=== PATIENT | male | born 1945 | race Caucasian/White ===

== ENCOUNTER → 2020-12-02 08:56 | Outpatient (BNVA) | payer MEDICARE, SELFPAY | PROVIDERS: PCP Nurse Practitioner Family; Visit Provider Nurse Practitioner Family | DX: R59.1 Generalized enlarged lymph nodes (principal); M25.561 Pain in right knee; M17.12 Unilateral primary osteoarthritis, left knee; M85.862 Other specified disorders of bone density and structure, left lower leg; Z12.5 Encounter for screening for malignant neoplasm of prostate; M10.9 Gout, unspecified; R73.9 Hyperglycemia, unspecified; I10 Essential (primary) hypertension; Z71.89 Other specified counseling | CPT/HCPCS: 73562; 80053; 80061; 82607; 83036; 84443; 84550; 85025; G0103 ==

== ENCOUNTER → 2020-12-20 10:45 | Outpatient (BNVA) | payer MEDICARE, SELFPAY | PROVIDERS: PCP Nurse Practitioner Family; Referring Provider Nurse Practitioner Family; Visit Provider Orthopaedic Surgery | DX: M16.12 Unilateral primary osteoarthritis, left hip (principal); M25.552 Pain in left hip; M25.561 Pain in right knee | CPT/HCPCS: 73502 ==

== ENCOUNTER 2021-01-04 06:00 | Outpatient (RCR) | payer MEDICARE, SELFPAY | END 2021-01-06 23:59 | disposition home or self-care (01) | LOC: TPT 06:00 | PROVIDERS: PCP Nurse Practitioner Family; Referring Provider Orthopaedic Surgery; Visit Provider Orthopaedic Surgery | DX: M54.5 Low back pain (principal); M25.552 Pain in left hip | CPT/HCPCS: 97110; 97162 ==

== ENCOUNTER 2021-01-07 06:00 | Outpatient (RCR) | payer MEDICARE, SELFPAY | END 2021-02-06 23:59 | disposition home or self-care (01) | LOC: TPT 06:00 | PROVIDERS: PCP Nurse Practitioner Family; Referring Provider Orthopaedic Surgery; Visit Provider Orthopaedic Surgery | DX: M25.552 Pain in left hip (principal) | CPT/HCPCS: 97110 ==

== ENCOUNTER 2021-02-07 06:00 | Outpatient (RCR) | payer MEDICARE, SELFPAY | END 2021-03-08 23:59 | disposition home or self-care (01) | LOC: TPT 06:00 | PROVIDERS: PCP Nurse Practitioner Family; Referring Provider Orthopaedic Surgery; Visit Provider Orthopaedic Surgery | DX: M54.50 Low back pain, unspecified (principal); M25.559 Pain in unspecified hip | CPT/HCPCS: 97110; 97164 ==

== ENCOUNTER → 2021-03-10 17:08 | Outpatient (BNVA) | payer MEDICARE, SELFPAY | PROVIDERS: PCP Nurse Practitioner Family; Visit Provider Nurse Practitioner Family | DX: E53.8 Deficiency of other specified B group vitamins (principal); I10 Essential (primary) hypertension | CPT/HCPCS: 80053; 82607 ==

== ENCOUNTER → 2021-11-28 08:26 | Outpatient (BNVA) | payer MEDICARE, SELFPAY | PROVIDERS: PCP Nurse Practitioner Family; Visit Provider Nurse Practitioner Family | DX: E53.8 Deficiency of other specified B group vitamins (principal); Z12.5 Encounter for screening for malignant neoplasm of prostate; R73.9 Hyperglycemia, unspecified; E55.9 Vitamin D deficiency, unspecified; I10 Essential (primary) hypertension; E78.5 Hyperlipidemia, unspecified; M10.9 Gout, unspecified | CPT/HCPCS: 80053; 80061; 82306; 82607; 83036; 84550; 85025; G0103 ==

== ENCOUNTER 2022-03-10 11:54 | Emergency (ER) | payer MEDICARE, SELFPAY ==
[2022-03-10 12:09] VITALS: BP 116/73; PULSE 100; RESP 18; TEMP 37.2; O2SAT 95
--- NOTE | 2022-03-10 13:32 | CT_ITS ---
WS: [id number] CT HEAD TECHNIQUE: Noncontrast CT of the head obtained from the skullbase to the vertex. CLINICAL INFORMATION: Difficulty communicating COMPARISON: None. DLP: 1129.[address] scans at [facility] use at least one of these dose optimization techniques: automated e xposure control; mA and/or kV adjustment per patient size (includes targeted exams where dose is matc hed to clinical indication); or iterative reconstruction. FINDINGS: Mild soft tissue edema overlying the RIGHT face and orbit partially visualized. Correlatio n for RIGHT facial and periorbital cellulitis. No evidence of intracranial hemorrhage or mass effect. Ventricular system and basal cisterns are cardoza nt. No extra-axial fluid collections. No evidence of mass or mass effect. Normal nation-white different iation. Vascular calcification. Paranasal sinuses and mastoid air cells are well aerated. .. CT/CT head wo con* [id number] IMPRESSION: 1. No evidence of intracranial hemorrhage or mass effect. 2. Mild soft tissue edema overlying the RIGHT face and orbit partially visuali zed. Correlation for RIGHT facial and periorbital cellulitis. This can be furth er evaluated with contrast-enhanced CT of the orbits if concern for orbital inv olvement 3. No acute intracranial findings.
--- NOTE | 2022-03-10 14:06 | XRR_ITS ---
PROCEDURE INFORMATION: Exam: XR Chest Exam date and time: 03/10/2022 2:13 PM Age: 76 years old Clinical indication: Cough and fever TECHNIQUE: Imaging protocol: Radiologic exam of the chest. Views: 1 view. COMPARISON: No relevant prior studies available. FINDINGS: Lungs: Unremarkable. No consolidation. Pleural spaces: Unremarkable. No pleural effusion. No pneumothorax. Heart/Mediastinum: Unremarkable. No cardiomegaly. Bones/joints: Unremarkable. XR/XR chest 1V portable [id number] IMPRESSION: No acute findings.
--- NOTE | 2022-03-10 14:08 | ED_ITS ---
HPI - Fever General: Chief Complaint: Fever Stated Complaint: Sabrina sent, swelling on face Time Seen by Provider: 03/10/22 13:43 History of Present Illness: Patient is a 76-year-old male who comes to the ED with multiple complaints. He was sent here to the ED by his primary care alejandra osborne to get a head CT scan. Patient was having some slight confusion and trouble speaking, some primary care physician sent patient here for further evaluation. Patient also has had a cough nasal congestion/drainage and fevers for the past 3 days. His cough is productive with a yellow sputum. Today he woke up and he had swelling to the right maxillary face that goes up into the right periorbital region as well. Endorses feeling some pain if palpated but otherwise no pain noted. Denies any vision changes or eye discomfort or pain. No apparent eye pain with any ocular movements. Denies any nausea or vomiting. Associated symptoms: Reports chills and nasal congestion; Deny abdominal pain, flank pain, chest pain, diarrhea, dysuria, headache(s), na usea or vomiting Review of Systems Const: Reports: fever(s) and chills; Denies: fatigue Eyes: Denies: change in vision or eye discomfort ENMT: Reports: throat pain, nasal discharge and nasal congestion; Denies: odynophagia Card: Denies: chest pain, palpitations, edema, swelling of feet/ankles, dyspnea on exertion or orthopnea Resp: Reports: productive cough (Yellow sputum); Denies: dyspnea or non-productive cough GI: Denies: abdominal pain, nausea, vomiting, diarrhea, constipation or hematochezia : Denies: flank pain, difficulty urinating, dysuria or hematuria Musc: Denies: neck pain, back pain or extremity swelling Skin/Breast: Reports: new lesions (Right maxillary facial swelling, erythema and tenderness) Neuro: Denies: headache(s), numbness in extremities or weakness in extremities PFSH ED PFSH: Medical History Anxiety Gout Hyperlipidemia Hypertension Vitamin D deficiency Surgical History Hx of appendectomy Hx of cataract extraction Hx of cholecystectomy (~2009) Hx of hernia repair (~2010) Family History Mother Cancer Melanoma Dementia Father Lung disease COPD Other CAD (coronary artery disease) Hypertension Denies family history of Diabetes Clotting disorder Anesthesia complication Bleeding disorder Stroke Social History Smoking and tobacco status: never smoked Second hand smoke exposure: No Alcohol intake: current Alcohol intake frequency: holidays/special occasions only Alcohol type: wine Caregiver/support person: Yes Lives independently: Yes Household members: spouse Marital status: service: Yes branch: [employer] Current occupational status: employed History of recent travel: Yes Details: moved to area from [place], [place] Out of state: Yes Current gender identity: Male Special andrzej needs: No Physical Exam Const: COMMON NORMALS: patient oriented x3 and alert GENERAL APPEARANCE: cooperative and comfortable HENMT: COMMON NORMALS: normocephalic HEAD & SCALP: normocephalic MOUTH: Normal oral and palatal mucosa present THROAT: posterior oropharynx normal and uvula midline Eye: COMMON NORMALS: Equal, round and reactive pupils present, EOMs intact bilaterally and conjunctivae normal GENERAL EYE: appearance normal, both eyes and all related structures PERIORBITAL: periorbital findings abnormal positive right periorbital swelling CONJUNCTIVA: Yes conjunctivae normal PUPIL: Yes Equal, round and reactive pupils present OTHER: Patient's conjunctivae is normal. EOM normal and no pain in eye with any occular movements. Neck/C-Spine: COMMON NORMALS: supple GENERAL: Yes normal visual inspection Lymph: LYMPHATIC: no lymphadenopathy noted Resp: COMMON NORMALS: normal respiratory effort, No retractions, No use of accessory muscles and clear to auscultation bilaterally AUSCULTATION: clear to auscultation bilaterally Cardio: COMMON NORMALS: regular rate, regular rhythm, S1 normal heart sound present, S2 normal heart sound present, No gallops present (Cardio), No clicks present (Cardio), No murmurs present (Cardio) and Peripheral pulses 2+ throughout RATE: regular rate RHYTHM: regular rhythm HEART SOUNDS: S1 normal heart sound present and S2 normal heart sound present PERIPHERAL PULSES: Peripheral pulses 2+ throughout GI: COMMON NORMALS: Normal to inspection, nondistended, normoactive bowel sounds present, Soft to palpation, non-tender and no masses PALPATION: Yes Soft to palpation : COMMON NORMALS: Yes no CVA tenderness BLADDER/KIDNEY EXAM: Yes no CVA tenderness Back/Pelvis: COMMON NORMALS: no CVA tenderness Extremity: GENERAL: Yes normal exam except as noted Neuro: COMMON NORMALS: patient oriented x3, CN's II-XII intact bilaterally, moves all extremities, no focal motor deficits and no sensory deficits noted SENSORIUM/ORIENTATION: Yes alert SENSORY EXAM: Yes extremities (intact) MOTOR EXAM: 5/5 motor strength present throughout Skin: COMMON NORMALS: no rashes or lesions noted GENERAL SKIN EXAM: no rashes or lesions noted and dry skin Course Vital Signs: Vital signs: Vital Signs Temperature 99.0 F 03/10/22 12:09 Pulse Rate 95 03/10/22 16:13 Respiratory Rate 18 03/10/22 16:13 Blood Pressure 125/68 03/10/22 16:13 Pulse Oximetry 98 03/10/22 16:13 MDM - Fever Medical Decision Making Patient is a 76-year-old male who comes to the ED with multiple complaints. He was sent here to the ED by his primary care physician to get a head CT scan. Ruben hurtado was having some slight confusion and trouble speaking, some primary care physician sent patient here for further evaluation. Patient also has had a cough nasal congestion/drainage and fevers for the past 3 days. His cough is productive with a yellow sputum. Today he woke up and he had swelling to the right maxillary face that goes up into the right periorbital region as well. Endorses feeling some pain if palpated but otherwise no pain noted. Denies any vision changes or eye discomfort or pain. No apparent eye pain with any ocular movements. Denies any nausea or vomiting. Vitals are stable. Patient has cellulitis on right side of face. Some swelling does involve the right pe riorbital region but patient has no pain in right eye and no pain with ocular movements. Neuro exam showed no deficits. White blood cell count 15.8 and creatinine was 1.6. Rapid strep was positive. Upper respiratory viral panel pending. Head CT shows no acute findings. Chest x-ray shows no acute findings. Patient was given half a liter of IV fluids, Rocephin and Solu-Medrol. Patient was diagnosed with cellulitis of face, creatinine elevation, viral URI with cough and strep throat. Patient was discharged home with a prescription for an antibiotic and a steroid. He was given strict return to ED precautions especially given his cellulitis of his face. Follow-up with PCP in the next 3 to 5 days for reevaluation and to have his creatinine levels rechecked. Patient understood and agreed with plan. Lab Data I reviewed the patient's lab results. 03/10/22 14:15 03/10/22 14:[address] 03/10/22 13:32 IMPRESSION: 1. No evidence of intracranial hemorrhage or mass effect. 2. Mild soft tissue edema overlying the RIGHT face and orbit partially visualized. Correlation for RIGHT facial and periorbital cellulitis. This can be further evaluated with contrast-enhanced CT of the orbits if concern for orbital involvement 3. No acute intracranial findings. Chest X-Ray 03/10/22 14:06 IMPRESSION: No acute findings. Laboratory Results WBC 15.8 10^3/uL (4.0-10.0) H 03/10/22 14:15 RBC 5.00 10^6/uL (4.1-5.3) 03/10/22 14:15 Hgb 13.3 g/dL (11.7-16.6) 03/10/22 14:15 Hct 42.7 % (42.0-52.0) 03/10/22 14:15 MCV 85.4 fl (80-94) 03/10/22 14:15 MCH 26.6 pg (28.0-34.0) L 03/10/22 14:15 MCHC 31.1 g/dL (30.0-36.0) 03/10/22 14:15 RDW 16.4 % (12.1-15.1) H 03/10/22 14:15 Plt Count 224 10^3/cmm (130-400) 03/10/22 14:15 MPV 11.0 fL (7.4-10.4) H 03/10/22 14:15 Neut % (Auto) 89.9 % 03/10/22 14:15 Lymph % (Auto) 2.6 % 03/10/22 14:15 [place] % (Auto) 6.9 % 03/10/22 14:15 Eos % (Auto) 0.0 % 03/10/22 14:15 Baso % (Auto) 0.2 % 03/10/22 14:15 Neut # (Auto) 14.19 10^3/uL (1.8-7.7) H 03/10/22 14:15 Lymph # (Auto) 0.4 10^3/uL (0.8-4.8) L 03/10/22 14:15 [place] # (Auto) 1.1 10^3/uL (0.2-0.9) H 03/10/22 14:15 Eos # (Auto) 0.0 10^3/uL (0.0-0.8) 03/10/22 14:15 Baso # (Auto) 0.0 10^3/uL (0.0-0.1) 03/10/22 14:15 Nucleated RBC % (auto) 0 % 03/10/22 14:15 Nucleated RBCs # 0.0 /100WBC 03/10/22 14:15 Sodium 132 mmol/L (136-145) L 03/10/22 14:15 Potassium 4.9 mmol/L (3.5-5.1) 03/10/22 14:15 Chloride 98 mmol/L (98-107) 03/10/22 14:15 Carbon Dioxide 22 mmol/L (22-29) 03/10/22 14:15 Anion Gap 16.9 (5-19) 03/10/22 14:15 BUN 24 mg/dL (8-23) H 03/10/22 14:15 Creatinine 1.6 mg/dL (0.7-1.2) H 03/10/22 14:15 GFR Calculation Not Reportable 03/10/22 14:15 Glucose 122 mg/dL (65-115) H 03/10/22 14:15 Calculated Osmolality 279 mOsm/kg (285-295) L 03/10/22 14:15 Calcium 8.7 mg/dL (8.5-10.5) 03/10/22 14:15 Total Bilirubin 0.4 mg/dL (0.15-1.2) 03/10/22 14:15 AST 66 U/L (0-40) H 03/10/22 14:15 ALT 62 U/L (0-41) H 03/10/22 14:15 Alkaline Phosphatase 121 U/L (40-130) 03/10/22 14:15 Total Protein 7.4 g/dL (6.6-8.7) 03/10/22 14:15 Albumin 3.5 g/dL (3.5-5.2) 03/10/22 14:15 Globulin 3.9 g/dL (1.3-4.6) 03/10/22 14:15 Nasal Influ A H1 2009 PCR Not detected (NOT DETECT) 03/10/22 14:17 Adenovirus (PCR) Not detected (NOT DETECT) 03/10/22 14:17 C. pneumoniae DNA (PCR) Not detected (NOT DETECT) 03/10/22 14:17 Coronavirus 229E (PCR) Not detected (NOT DETECT) 03/10/22 14:17 Human Metapneumovir PCR Not detected (NOT DETECT) 03/10/22 14:17 Influenza A (H1) PCR Not detected (NOT DETECT) 03/10/22 14:17 Influenza A (H3) PCR Not detected (NOT DETECT) 03/10/22 14:17 Influenza Type A (PCR) Not detected (NOT DETECT) 03/10/22 14:17 Influenza Type B (PCR) Not detected (NOT DETECT) 03/10/22 14:17 M. pneumoniae (PCR) Not detected (NOT DETECT) 03/10/22 14:17 Parainfluenza 1 (PCR) Not detected (NOT DETECT) 03/10/22 14:17 Parainfluenza 2 (PCR) Not detected (NOT DETECT) 03/10/22 14:17 Parainfluenza 3 (PCR) Not detected (NOT DETECT) 03/10/22 14:17 Parainfluenza 4 (PCR) Not detected (NOT DETECT) 03/10/22 14:17 RSV Type A (PCR) Not detected (NOT DETECT) 03/10/22 14:17 RSV Type B (PCR) Not detected (NOT DETECT) 03/10/22 14:17 Entero/Rhino (PCR) Not detected (NOT DETECT) 03/10/22 14:17 SARS-CoV-2 (PCR) Not detected (NOT DETECT) 03/10/22 14:17 Group A Strep Rapid Positive (Negative) H 03/10/22 14:20 Discharge Plan Discharge Patient Disposition: Home Clinical Impression: Cellulitis of face, Creatinine elevation, Viral URI with cough, Strep throat Condition: Stable Prescriptions: New cephalexin 500 mg capsule 500 mg PO Q6H 7 Days Qty: 28 0RF prednisone 20 mg tablet 20 mg PO BID 5 Days Qty: 10 0RF No Action Men's 50 Plus Multivitamin 400-20-370 mcg tablet 1 tab PO DAILY omega-3 fatty acids [Fish Oil Concentrate] 1,000 mg capsule 1,000 mg PO DAILY ascorbic acid (vitamin C) 500 mg capsule 500 mg PO DAILY glucosamine-chondroitin 900 mg tablet PO loratadine 10 mg tablet 10 mg PO DAILY Qty: 90 1RF resveratrol-quercetin 100-100 mg tablet 5 tab PO famotidine 20 mg tablet See Rx Instructions .ROUTE .COMPLEX Qty: 90 1RF Dose Instruction: Take 1 tablet by mouth once daily Rx Instructions: Take 1 tablet by mouth once daily tadalafil 5 mg tablet See Rx Instructions .ROUTE .COMPLEX Qty: 90 1RF Dose Instruction: Take 1 tablet by mouth once daily Rx Instructions: Take 1 tablet by mouth once daily allopurinol 300 mg tablet See Rx Instructions .ROUTE .COMPLEX Qty: 45 1RF Dose Instruction: Take 1/2 (one-half) tablet by mouth once daily Rx Instructions: Take 1/2 (one-half) tablet by mouth once daily cholecalciferol (vitamin D3) 1,250 mcg (50,000 unit) capsule See Rx Instructions .ROUTE .COMPLEX Qty: 12 0RF Dose Instruction: Take 1 capsule by mouth once a week Rx Instructions: Take 1 capsule by mouth once a week meloxicam 15 mg tablet See Rx Instructions .ROUTE .COMPLEX Qty: 90 0RF Dose Instruction: Take 1 tablet by mouth once daily Rx Instructions: Take 1 tablet by mouth once daily rosuvastatin 5 mg tablet See Rx Instructions .ROUTE .COMPLEX Qty: 90 0RF Dose Instruction: Take 1 tablet by mouth once daily Rx Instructions: Take 1 tablet by mouth once daily lisinopril 40 mg tablet See Rx Instructions .ROUTE .COMPLEX Qty: 90 0RF Dose Instruction: Take 1 tablet by mouth once daily Rx Instructions: Take 1 tablet by mouth once daily hydrochlorothiazide 25 mg tablet See Rx Instructions .ROUTE .COMPLEX Qty: 90 0RF Dose Instruction: TAKE 1 TABLET BY MOUTH IN THE MORNING Rx Instructions: TAKE 1 TABLET BY MOUTH IN THE MORNING diphenoxylate-atropine 2.5-0.025 mg tablet 1 tab PO DAILY PRN (Reason: diarrhea) Qty: 30 2RF clonazepam 0.5 mg tablet 0.25 mg PO DAILY Qty: 15 0RF Discharge Orders: Discharge ED (Routine); Ordered 03/10/22 Ordered By: Mart Luz Referrals: Cheryl Bennett FNP [Primary Care Provider] - Discharge Diet: Regular Discharge Activity: Increase activity as tolerated Patient Instructions: Cellulitis (ED), Strep Throat (DC), Upper Respiratory Infection (ED) Activity Restrictions/Additional Instructions: Follow-up with medical provider as directed in the next 3 to 4 days for re evaluation and to have your creatinine levels rechecked. Take medications as prescribed. Return to the ER or your medical provider if condition worsens or you start developing any eye pain, vision change or any other right eye complaint.. Please read and understand discharge instructions. Thank you for choosing [facility] for your healthcare needs today. Please realize this is an emergency room and that we are providing you with a medical screening exam and this may not be complete and all inclusive of all the testing and or work up that you may need to determine your ailment or severity of your illness. It is very important that you follow up as instructed or that you return to the Emergency Department should you have concerns or if your condition changes or worsens in any way. Coding Level of Care Code ED Dental Hygienist Mobile Coordinator for Saima Fwdashawn Exam Comprehensive
[2022-03-10 14:38] LABS: Basophils % 0.2 %; Hematocrit 42.7 % (42.0-52.0); Hemoglobin 13.3 g/dL (11.7-16.6); Lymphocytes # 0.4 10^3/uL (0.8-4.8); Lymphocytes % 2.6 %; Mean Corpuscular HGB Conc 31.1 g/dL (30.0-36.0); Mean Corpuscular Hemoglobin 26.6 pg (28.0-34.0); Mean Corpuscular Volume 85.4 fl (80-94); Monocytes # 1.1 10^3/uL (0.2-0.9); Monocytes % 6.9 %; Neutrophils # 14.19 10^3/uL (1.8-7.7); Neutrophils % 89.9 %; Nucleated Red Blood Cells % 0 %; Platelet Count 224 10^3/cmm (130-400); Red Cell Distribution Width 16.4 % (12.1-15.1); White Blood Count 15.8 10^3/uL (4.0-10.0)
[2022-03-10 14:56] LABS: Alanine Aminotransferase 62 U/L (0-41); Albumin Level 3.5 g/dL (3.5-5.2); Alkaline Phosphatase 121 U/L (40-130); Anion Gap 16.9 (5-19); Aspartate Amino Transferase 66 U/L (0-40); Blood Urea Nitrogen 24 mg/dL (8-23); Calcium 8.7 mg/dL (8.5-10.5); Carbon Dioxide 22 mmol/L (22-29); Chloride 98 mmol/L (98-107); Globulin 3.9 g/dL (1.3-4.6); Glucose 122 mg/dL (65-115); Osmolality Calculated 279 mOsm/kg (285-295); Potassium 4.9 mmol/L (3.5-5.1); Sodium 132 mmol/L (136-145); Total Bilirubin 0.4 mg/dL (0.15-1.2); Total Protein 7.4 g/dL (6.6-8.7)
[2022-03-10] MEDS: cefTRIAXone 1,000 MG in sodium chloride 0.9% (plus) 50 ML 100 MG IV (15:08)
[2022-03-10] MEDS: sodium chloride 0.9% 500 ML 999 ML IV (15:22)
[2022-03-10 15:50] LABS: Rapid Strep A Test Positive (Negative)
[2022-03-10 16:13] VITALS: BP 125/68; PULSE 95; RESP 18; O2SAT 98
[2022-03-10 16:19] LABS: Adenovirus Not Detected (NOT DETECT); Chlamydia Pneumoniae Not Detected (NOT DETECT); Coronavirus 229E,HKU1,NL63,OC4 Not Detected (NOT DETECT); Human Metapneumovirus Not Detected (NOT DETECT); Human Rhinovirus/Enterovirus Not Detected (NOT DETECT); Influenza A Not Detected (NOT DETECT); Influenza A H1 Not Detected (NOT DETECT); Influenza A H1-2009 Not Detected (NOT DETECT); Influenza A H3 Not Detected (NOT DETECT); Influenza B Not Detected (NOT DETECT); Mycoplasma Pneumoniae Not Detected (NOT DETECT); Parainfluenza Virus Type 1 Not Detected (NOT DETECT); Parainfluenza Virus Type 2 Not Detected (NOT DETECT); Parainfluenza Virus Type 3 Not Detected (NOT DETECT); Parainfluenza Virus Type 4 Not Detected (NOT DETECT); Respiratory Syncytial Virus A Not Detected (NOT DETECT); Respiratory Syncytial Virus B Not Detected (NOT DETECT); SARS-COV-2 Not Detected (NOT DETECT)
== END 2022-03-10 16:15 | disposition home or self-care (01) ==
PROVIDERS: Emergency Provider Physician Assistant; PCP Nurse Practitioner Family
DX: L03.211 Cellulitis of face (principal); J06.9 Acute upper respiratory infection, unspecified; J02.0 Streptococcal pharyngitis; R79.89 Other specified abnormal findings of blood chemistry; Z20.822 Contact with and (suspected) exposure to COVID-19; E78.5 Hyperlipidemia, unspecified; I10 Essential (primary) hypertension
CPT/HCPCS: 36415; 70450; 71045; 80053; 85025; 87400; 87426; 87486; 87581; 87633; 87880; 96374; 96375; 99285; J0696; J2930; J7040

== ENCOUNTER → 2022-03-14 16:42 | Outpatient (BNVA) | payer MEDICARE, SELFPAY | PROVIDERS: PCP Nurse Practitioner Family; Visit Provider Nurse Practitioner Family | DX: L03.211 Cellulitis of face (principal); E55.9 Vitamin D deficiency, unspecified; R73.9 Hyperglycemia, unspecified; I10 Essential (primary) hypertension; E53.8 Deficiency of other specified B group vitamins; M10.9 Gout, unspecified | CPT/HCPCS: 80053; 80061; 82306; 82607; 83036; 83735; 84443; 84550; 85007; 85025 ==

== ENCOUNTER → 2022-06-22 10:32 | Outpatient (BNVA) | payer MEDICARE, SELFPAY | PROVIDERS: PCP Nurse Practitioner Family; Visit Provider Nurse Practitioner Family | DX: I10 Essential (primary) hypertension (principal); E78.5 Hyperlipidemia, unspecified; R73.9 Hyperglycemia, unspecified; E55.9 Vitamin D deficiency, unspecified | CPT/HCPCS: 80053; 80061; 82306; 83036; 85025 ==

== ENCOUNTER → 2022-12-25 12:24 | Outpatient (BNVA) | payer MEDICARE, SELFPAY | PROVIDERS: PCP Nurse Practitioner Family; Visit Provider Nurse Practitioner Family | DX: K58.0 Irritable bowel syndrome with diarrhea; E55.9 Vitamin D deficiency, unspecified; M10.9 Gout, unspecified; I10 Essential (primary) hypertension; E53.8 Deficiency of other specified B group vitamins; E78.5 Hyperlipidemia, unspecified; N40.0 Benign prostatic hyperplasia without lower urinary tract symptoms; R73.9 Hyperglycemia, unspecified | CPT/HCPCS: 80053; 80061; 82306; 82607; 83036; 84443; 84550; 85025 ==

== ENCOUNTER → 2023-02-08 08:25 | Outpatient (BNVA) | payer MEDICARE, SELFPAY | PROVIDERS: PCP Nurse Practitioner Family; Visit Provider Nurse Practitioner Family | DX: E87.5 Hyperkalemia (principal); R53.83 Other fatigue | CPT/HCPCS: 80048; 84403 ==

== ENCOUNTER → 2023-06-07 13:58 | Outpatient (BNVA) | payer MEDICARE, SELFPAY | PROVIDERS: PCP Nurse Practitioner Family; Visit Provider Family Medicine | DX: R50.9 Fever, unspecified (principal); R05.9 Cough, unspecified | CPT/HCPCS: 87071; 87400; 87426; 87880 ==

== ENCOUNTER → 2023-06-25 15:30 | Outpatient (BNVA) | payer MEDICARE, SELFPAY | PROVIDERS: PCP Nurse Practitioner Family; Visit Provider Nurse Practitioner Family | DX: Z12.5 Encounter for screening for malignant neoplasm of prostate (principal); E53.8 Deficiency of other specified B group vitamins; M10.9 Gout, unspecified; I10 Essential (primary) hypertension; E55.9 Vitamin D deficiency, unspecified; R73.9 Hyperglycemia, unspecified | CPT/HCPCS: 80053; 80061; 82306; 82607; 83036; 84443; 84550; 85025; G0103 ==

== ENCOUNTER → 2023-09-17 08:31 | Outpatient (BNVA) | payer MEDICARE, SELFPAY | PROVIDERS: PCP Nurse Practitioner Family; Visit Provider Nurse Practitioner Family | DX: N40.1 Benign prostatic hyperplasia with lower urinary tract symptoms (principal) | CPT/HCPCS: 84153 ==

== ENCOUNTER → 2023-12-26 09:10 | Outpatient (BNVA) | payer MEDICARE, SELFPAY | PROVIDERS: PCP Nurse Practitioner Family; Visit Provider Nurse Practitioner Family | DX: R19.7 Diarrhea, unspecified (principal); E78.5 Hyperlipidemia, unspecified; E55.9 Vitamin D deficiency, unspecified; I10 Essential (primary) hypertension; M10.9 Gout, unspecified | CPT/HCPCS: 80053; 82306; 82607; 84443; 84550; 85025 ==

== ENCOUNTER → 2023-12-27 08:56 | Outpatient (BNVA) | payer MEDICARE, SELFPAY | PROVIDERS: PCP Nurse Practitioner Family; Visit Provider Nurse Practitioner Family | DX: E78.5 Hyperlipidemia, unspecified (principal) | CPT/HCPCS: 80061 ==

== ENCOUNTER → 2024-01-07 10:56 | Outpatient (BNVA) | payer MEDICARE, SELFPAY | PROVIDERS: PCP Nurse Practitioner Family; Visit Provider Nurse Practitioner Family | DX: R19.7 Diarrhea, unspecified (principal) | CPT/HCPCS: 83630; 87045; 87177; 87209; 87427; 87449; 87493 ==

== ENCOUNTER → 2024-06-30 10:37 | Outpatient (BNVA) | payer MEDICARE, SELFPAY | PROVIDERS: PCP Nurse Practitioner Family; Visit Provider Nurse Practitioner Family | DX: R73.9 Hyperglycemia, unspecified (principal); E55.9 Vitamin D deficiency, unspecified; I10 Essential (primary) hypertension; E78.5 Hyperlipidemia, unspecified; M10.9 Gout, unspecified; K58.0 Irritable bowel syndrome with diarrhea; T78.1XXA Other adverse food reactions, not elsewhere classified, initial encounter; X58.XXXA Exposure to other specified factors, initial encounter | CPT/HCPCS: 80053; 80061; 82306; 83036; 84550; 85025; 86003; 86008 ==

== ENCOUNTER → 2025-01-27 10:35 | Outpatient (BNVA) | payer MEDICARE, SELFPAY | PROVIDERS: PCP Nurse Practitioner Family; Visit Provider Nurse Practitioner Family | DX: Z12.5 Encounter for screening for malignant neoplasm of prostate (principal); I10 Essential (primary) hypertension; R73.9 Hyperglycemia, unspecified; E78.5 Hyperlipidemia, unspecified; E55.9 Vitamin D deficiency, unspecified; F41.9 Anxiety disorder, unspecified | CPT/HCPCS: 80053; 80061; 82306; 84443; 85025; G0103 ==

== ENCOUNTER → 2025-01-30 10:50 | Outpatient (BNVA) | payer MEDICARE, SELFPAY | PROVIDERS: PCP Nurse Practitioner Family; Visit Provider Nurse Practitioner Family | DX: N40.1 Benign prostatic hyperplasia with lower urinary tract symptoms (principal); E53.8 Deficiency of other specified B group vitamins; R26.81 Unsteadiness on feet | CPT/HCPCS: 82607; 84550 ==

== ENCOUNTER → 2025-03-04 09:53 | Outpatient (BNVA) | payer MEDICARE, SELFPAY | PROVIDERS: PCP Nurse Practitioner Family; Visit Provider Nurse Practitioner Family | DX: N28.9 Disorder of kidney and ureter, unspecified (principal) | CPT/HCPCS: 80048 ==